=== PATIENT | female | born 1985 | race Caucasian/White ===

== ENCOUNTER 2017-04-01 | Inpatient (IN) | payer OTHER ==
[2017-04-01] MEDS ORDERED: OXYTOCIN/DEXTROSE 5%-WATER 30 UNITS/500 ML BAG IV ONE (00:05)
[2017-04-01] MEDS ORDERED: LIDOCAINE HCL 50 ML VIAL PERI PRN (00:05)
[2017-04-01] MEDS ORDERED: RINGER'S SOLUTION,LACTATED 1,000 ML IV ONE ×2 (00:05→07:28)
[2017-04-01] MEDS: MISOPROSTOL 100 MCG TABLET VG PRN ×2 (00:34→04:48)
[2017-04-01] MEDS ORDERED: TERBUTALINE SULFATE 1 MG/ML VIAL ONE (07:01)
[2017-04-01] MEDS ORDERED: TERBUTALINE SULFATE 1 MG/ML VIAL SC ONE (07:27)
--- NOTE | 2017-04-01 09:51 | PN ---
Progess Note - Interim Narrative: 04/01/17 09:50 Patient received second dose of Cytotec around 450 this morning and had tachsystole requiring one dose of subcutaneous Brethine. tracing is now reassuring and contractions are every 2-3 minutes. Cervix remains unchanged at fingertip/50/-2. We'll continue with induction of labor.
--- NOTE | 2017-04-01 13:35 | PN ---
Progess Note - Interim Narrative: 04/01/17 13:33 Patient rating her contractions 1 out of 10 Vital signs stable. Status post 2 doses of Cytotec-last dose around 04:50 AM FHT: 120 baseline, reassuring Contractions q 2-4 min Cervix: /-2 Impression: Intrauterine at 41 weeks and obstruction of labor Plan: We'll consider Rodriguez bulb cervical ripening if no further change in the next few hours.
[2017-04-01] MEDS ORDERED: NALOXONE HCL 1 MG/1 ML SYRG IV PRN (18:53)
[2017-04-01] MEDS ORDERED: ONDANSETRON HCL/PF 2 MG/ML VIAL IV PRN (18:53)
[2017-04-01] MEDS ORDERED: BUPIVACAINE HCL/PF 30 ML VIAL EP SCH (19:00)
--- NOTE | 2017-04-01 20:08 | OR ---
Anesthesia Procedure Note - Anesthesia Procedure Note Date of Service: 04/01/17 Narrative: Vital Signs - Last Taken Temp 36.4 C L 04/01/17 19:39 Pulse 71 04/01/17 19:39 Resp 18 04/01/17 19:39 BP 119/76 04/01/17 19:39 Pulse Ox 99 04/01/17 19:39 04/01/17 20:07 ANESTHESIA PROCEDURE NOTE Date of Procedure: 04/01/2017. Time of procedure: 1944. Performed by: Jasbir Acosta CRNA Hammer Shop Supervisor: None. Preprocedure diagnosis: Active labor. Post procedure diagnosis: Same. Procedure: Insertion of labor epidural. Indications: The patient is a 31 -year-old female in active labor requesting labor epidural for pain management. Findings: See below. Details of the procedure: The patient was placed in a sitting position. DuraPrep as well as Betadine swabs X3 was applied to the patient's back. Patient was then draped in a sterile fashion. Lidocaine 1% was infiltrated to the skin and subcutaneous tissues at the level of the L3-4 interspace. The epidural space was identified using a 18-gauge Tuohy needle with loss-of- resistance technique. Epidural catheter was inserted to a depth of 11 centimeters at skin. Negative test dose was elicited using 3 mL of 1.5% preservative-free lidocaine plus epinephrine 1 200,000. The epidural catheter was then taped and secured in place. A loading dose of 8 mL of 0.25% preservative-free bupivacaine was administered to the epidural catheter after negative aspiration for blood and CSF. EBL: Minimal. Fluids: N/A. Specimen: N/A. Post procedure condition: The patient tolerated the procedure well. No complications were noted. Thank you for this consultation. Jasbir Acosta CRNA
[2017-04-01] MEDS: BUPIVACAINE HCL/0.9 % NACL/PF 250 ML EP PRN (20:24)
[2017-04-01] MEDS: DEXTROSE 5%-LACTATED RINGERS 1,000 ML IV PRN (20:24)
[2017-04-02] MEDS: DEXTROSE 5%-LACTATED RINGERS 1,000 ML IV PRN ×4 (00:16→11:51)
[2017-04-02] MEDS: BUPIVACAINE HCL/0.9 % NACL/PF 250 ML EP PRN (13:03)
[2017-04-02] MEDS ORDERED: OXYTOCIN/DEXTROSE 5%-WATER 30 UNITS/500 ML BAG IV ONE (16:21)
[2017-04-02] MEDS ORDERED: oxyCODONE HCL/ACETAMINOPHEN 1 TAB TABLET PO PRN (16:21)
[2017-04-02] MEDS ORDERED: BENZOCAINE/MENTHOL 81 SPRAY CAN TP PRN (16:21)
[2017-04-02] MEDS ORDERED: SENNOSIDES 8.6 MG TABLET PO PRN (16:21)
[2017-04-02] MEDS ORDERED: BISACODYL 10 MG SUPP.RECT RC PRN (16:21)
[2017-04-02] MEDS ORDERED: GLYCERIN/WITCH HAZEL LEAF 40 APPL BOX TP PRN (16:21)
[2017-04-02] MEDS ORDERED: HYDROCORTISONE 30 APPL TUBE TP PRN (16:21)
--- NOTE | 2017-04-02 16:31 | OR ---
Operative Report - Dictated Report Narrative: Indication: Maternal exhaustion, prolonged second stage of labor, decelerations Pre Procedure Patient was counseled to the risk, benefits, and alternatives to operative vaginal delivery. All questions were answered. Patient consented to proceed with operative vaginal delivery. heart rate interpretation: Good obcy-lp-cpim variability with accelerations and occasional late decelerations, EFW 3200 g, station +2, Position of head GABE, Anesthesia: epidural Cervix was completely dilated and effaced, maternal- size appropriate for application, bladder was emptied, flexion point identified, cup choice appropriate for application site, maternal tissue excluded from vacuum cup Procedure Total application time of the Kiwi Pro with Palm Pump was 30 seconds, maximum vacuum achieved was 500 mm Hg, number of pulls 1, number of involuntary releases 0, advancement in station with each pull, degree of rotation 0-45 Post Procedure Viable male born at 1544 on 04/09/2021 with Apgars 8 and 9, weighing 3362 g in GABE position. Tight nuchal cord 1. Moderate meconium stained fluid - bottle tester present for delivery. Cord clamping delayed 1 minute. Cord gases not collected, Placenta spontaneously delivered, EBL 400 mL, no injury, no shoulder dystocia Second-degree vaginal laceration (4 cm) repaired with 3-0 Vicryl Rapide. hemorrhage due to uterine atony responded to Cytotec 800 g rectally , uterine massage, and Pitocin 30 mU/m IV. History for MU Definition: * The number of deliveries resulting in a live the patient experienced prior to current hospitalization * The previous delivery of live twins or any live multiple gestation is considered one live event. *If primagravida or nulliparous is documented select zero for the number of previous live births. Live Events: 0
[2017-04-02] MEDS: IBUPROFEN 800 MG TABLET PO PRN (18:57)
[2017-04-02] MEDS: oxyCODONE HCL/ACETAMINOPHEN 1 TAB TABLET PO PRN ×2 (20:15→23:59)
[2017-04-02] MEDS: DOCUSATE SODIUM 100 MG CAPSULE PO SCH (20:38)
[2017-04-03] MEDS: IBUPROFEN 800 MG TABLET PO PRN ×3 (02:32→17:25)
[2017-04-03] MEDS: oxyCODONE HCL/ACETAMINOPHEN 1 TAB TABLET PO PRN ×4 (05:38→21:02)
[2017-04-03] MEDS: DOCUSATE SODIUM 100 MG CAPSULE PO SCH ×2 (08:12→21:03)
--- NOTE | 2017-04-03 09:04 | PN ---
Subjective - Date and Time Seen Date: 04/03/17 Time: 09:04 Objective - Vitals Vitals: Last Vital Signs Temp 36.3 C L 04/03/17 08:00 Pulse 73 04/03/17 08:00 Resp 16 04/03/17 08:00 BP 131/55 04/03/17 08:00 Pulse Ox 100 04/02/17 20:50 Patient denies complaints. Lochia wnl Abdomen - soft, nontender Uterus - firm, at umbilicus - 1 No calf tenderness Impression: day #1 - s/p spontaneous vaginal delivery. Plan: Continue routine care Cauti Physician Documentation - Urinary Catheter Management Urethral (Rodriguez) Date of Insertion: 04/01/17 Time of Insertion: 21:00 Date of Removal: 04/02/17 Time of Removal: 15:30
[2017-04-04] MEDS: oxyCODONE HCL/ACETAMINOPHEN 1 TAB TABLET PO PRN ×2 (03:05→07:34)
[2017-04-04] MEDS: IBUPROFEN 800 MG TABLET PO PRN (07:34)
[2017-04-04] MEDS: DOCUSATE SODIUM 100 MG CAPSULE PO SCH (09:29)
[2017-04-04 09:48] VITALS: BP 85/48
--- NOTE | 2017-04-04 12:27 | PN ---
Subjective - Date and Time Seen Date: 04/04/17 Time: 12:26 Objective - Vitals Vitals: Last Vital Signs Temp 36.6 C 04/04/17 07:30 Pulse 68 04/04/17 07:30 Resp 20 04/04/17 07:30 BP 85/48 04/04/17 07:30 Pulse Ox 99 04/04/17 07:30 Patient denies complaints. Lochia wnl Abdomen - soft, nontender Uterus - firm, at umbilicus - 2 No calf tenderness Impression: day #2 - s/p spontaneous vaginal delivery. Plan: Routine discharge instructions Cauti Physician Documentation - Urinary Catheter Management Urethral (Rodriguez) Date of Insertion: 04/01/17 Time of Insertion: 21:00 Date of Removal: 04/02/17 Time of Removal: 15:30
== END 2017-04-04 17:00 | disposition home or self-care (01) | DRG 774 ==
LOC: OB → MS 04-03 10:51
PROVIDERS: ADMIT Obstetrics & Gynecology; ATTEND Obstetrics & Gynecology
PROC: 10D07Z6 Extraction of Products of Conception, Vacuum, Via Natural or Artificial Opening (ICD-10-PCS; principal; 2017-04-02)
PROC: 0KQM0ZZ Repair Perineum Muscle, Open Approach (ICD-10-PCS; 2017-04-02)
PROC: 3E033VJ Introduction of Other Hormone into Peripheral Vein, Percutaneous Approach (ICD-10-PCS; 2017-04-02)
PROC: 4A1HXCZ Monitoring of Products of Conception, Cardiac Rate, External Approach (ICD-10-PCS; 2017-04-02)
PROC: 00HU33Z Insertion of Infusion Device into Spinal Canal, Percutaneous Approach (ICD-10-PCS; 2017-04-02)
DX: O48.0 Post-term pregnancy (principal); O72.1 Other immediate postpartum hemorrhage; O75.81 Maternal exhaustion complicating labor and delivery; O63.1 Prolonged second stage (of labor); O69.1XX0 Labor and delivery complicated by cord around neck, with compression, not applicable or unspecified; O70.1 Second degree perineal laceration during delivery; O76 Abnormality in fetal heart rate and rhythm complicating labor and delivery; O77.0 Labor and delivery complicated by meconium in amniotic fluid; Z3A.41 41 weeks gestation of pregnancy; Z37.0 Single live birth
CPT/HCPCS: 59025; J2405

== ENCOUNTER 2019-03-18 00:04 | Inpatient (IN) ==
[2019-03-18] MEDS ORDERED: ONDANSETRON 4 MG TAB.RAPDIS PO PRN (00:09)
[2019-03-18] MEDS ORDERED: OXYTOCIN/DEXTROSE 5%-WATER 30 UNITS/500 ML BAG IV ONE ×2 (00:09→21:28)
[2019-03-18] MEDS ORDERED: DEXTROSE 5%-LACTATED RINGERS 1,000 ML IV PRN (00:09)
[2019-03-18] MEDS ORDERED: MISOPROSTOL 100 MCG TABLET VG PRN (00:09)
[2019-03-18] MEDS ORDERED: PENICILLIN G POTASSIUM 5 MILLIONUNT in DEXTROSE 5 % IN WATER 100 ML IV ONE ×2 (00:30)
[2019-03-18 00:35] LABS: Cocaine Ur Negative (NEGATIVE); Urine Barbiturate Negative (NEGATIVE); Urine Benzodiazepines Negative (NEGATIVE); Urine Opiates Negative (NEGATIVE); Urine PCP Negative (NEGATIVE); Urine THC Negative (NEGATIVE)
[2019-03-18] MEDS: RINGER'S SOLUTION,LACTATED 1,000 ML IV ONE ×3 (00:55→17:52)
[2019-03-18] MEDS: PENICILLIN G POTASSIUM 2.5 MILLIONUNT in DEXTROSE 5 % IN WATER 100 ML IV SCH ×8 (04:53→17:09)
--- NOTE | 2019-03-18 06:57 | HP ---
Chief Complaint - Chief Complaint Date of Service: 03/18/19 Time of Service: 06:12 Chief Complaint: Induction of labor for AMA History of Present Illness: 33 yo at 39 3/7 wks admitted for induction of labor for advanced maternal age. This complicated by AMA, anxiety, h/o depression, h/o recurrent SAB, h/o PP hemorrhage, and h/o LEEP. Rh positive Rubella immune GBS positive Medical History (Updated 12/15/18 @ 09:15 by Tanisha Jansen RN) Anemia (Acute) Onset Date: 01/09/17 with pregnancies -2016, 2018 Anxiety (Chronic) Mood swings (Acute) Lactational amenorrhea (Acute) Anxiety Onset Date: Unknown Depression Onset Date: Unknown HPV (human papilloma virus) infection Onset Date: Unknown Abnormal Pap smear of cervix Onset Date: Unknown hemorrhage Onset Date: 04/02/17 due to uterine atony Recurrent loss Onset Date: 12/29/15 Uterine atony Onset Date: 04/02/17 [place] teeth extracted Onset Date: Unknown Surgical History: Surgical History (Updated 02/11/18 @ 17:06 by Xiao Pompa [facility]) H/O LEEP Onset Date: Unknown History of colposcopy Onset Date: Unknown Family History: Family History (Updated 02/23/18 @ 15:13 by Xiao Pompa CMA) Brother Epilepsy Grandfather , maternal Cancer Lung cancer Grandfather , paternal Cancer Lung cancer Grandmother , paternal Unknown cause of morbidity or mortality Mother Hypertension Father COPD (chronic obstructive pulmonary disease) Social History: (Last Reviewed 03/18/19 @ 06:33 by Kaveh Pugh DO) Social History: Marital status: household members: spouse, children current occupational status: employed current occupation: teacher Highest education level completed: Bachelor's degree Service: No Tobacco: Smoking Status: Never smoker Alcohol: alcohol intake: current alcohol intake frequency: holiday/special occasion Substance Use: substance use type: does not use Dietary Habits: caffeine: No Exercise: Physical activity type: bicycling Moderate/strenuous exercise - number of days: 1 frequency: 3-4 times per week Review Of Systems (GEN) - Review of Systems Generalized/Overall Review: Present: No Symptoms Reported EENTM: Present: No Symptoms Reported Respiratory: Present: No Symptoms Reported Cardiac: Present: No Symptoms Reported Abdominal: Present: No Symptoms Reported Genitourinary: Present: No Symptoms Reported Musculoskeletal: Present: No Symptoms Reported Neurological: Present: No Symptoms Reported Skin: Present: No Symptoms Reported Endocrine: Present: No Symptoms Reported Allergies/Adverse Reactions: Allergies Allergy/AdvReac Type Severity Reaction Status Date / Time No Known Allergies Allergy Verified 03/18/19 00:17 Home Medications: HOME MEDICATIONS vitamin,calcium,zdvgiwte-hgdz-evyrv acid tablet 1 tab PO DAILY 02/23/18 [Last Taken 03/17/19 08:00] ferrous sulfate 325 mg (65 mg iron) tablet,delayed release 325 mg PO DAILY #30 tab 12/15/18 [Last Taken 03/17/19 08:00] Exam - Exam Vital Signs: Vital Signs - Last Taken Temp 36.3 C 03/18/19 00:20 Pulse 98 03/18/19 00:20 Resp 16 03/18/19 00:20 BP 121/74 03/18/19 00:20 Pulse Ox 98 03/18/19 00:20 Constitutional: Present: Alert, Oriented x3, Cooperative, No distress ENT Exam: Present: hearing grossly normal Breasts: Present: Exam deferred Respiratory: Present: lungs clear, no respiratory distress Cardiovascular/Chest: Present: regular rate, rhythm, no edema Abdomen: Present: soft, nontender, no rebound tenderness, other - gravid /Rectal: Present: Other - cervix FT/TH/-3 Extremity: Present: no pedal edema, no calf tenderness Skin Exam: Present: normal color, warm/dry, no cyanosis Lymphatic: Present: no adenopathy Neurologic: Present: alert, normal mood/affect, oriented x 3 Appearance: Present: appropriate appearance, appropriate insight Eye contact: Present: cooperative, good eye contact Thoughts: Present: normal thought pattern Diagnostic Studies: Laboratory Results Negative (NEGATIVE) 03/18/19 00:20 Negative (NEGATIVE) 03/18/19 00:20 Ur Phencyclidine Scrn Negative (NEGATIVE) 03/18/19 00:20 Urine Amphetamine Negative (NEGATIVE) 03/18/19 00:20 U Benzodiazepines Scrn Negative (NEGATIVE) 03/18/19 00:20 Negative (NEGATIVE) 03/18/19 00:20 Negative (NEGATIVE) 03/18/19 00:20 Assessment/Plan - Assessment/Plan (1) Advanced maternal age (AMA) in Assessment: Admit for Cytotec induction of labor. Epidural PRN. IV PCN for GBS prophylaxis. Problem: Acute (2) Group B streptococcal carriage complicating Problem: Acute (3) Anxiety and depression Problem: Acute (4) History of loop electrical excision procedure (LEEP) Problem: Acute (5) History of recurrent miscarriages Problem: Acute
[2019-03-18] MEDS ORDERED: ONDANSETRON HCL/PF 2 MG/ML VIAL IV PRN (16:45)
[2019-03-18] MEDS ORDERED: BUPIVACAINE HCL/0.9 % NACL/PF 250 ML EP PRN (16:45)
[2019-03-18] MEDS ORDERED: NALOXONE HCL 1 MG/1 ML SYRG IV PRN (16:45)
[2019-03-18] MEDS ORDERED: BUPIVACAINE HCL/PF 30 ML VIAL EP SCH (16:45)
--- NOTE | 2019-03-18 17:08 | ANES ---
Anesthesia Pre Procedure Eval Vitals/Labs: Last Vital Signs Temp 36.3 C 03/18/19 00:20 Pulse 98 03/18/19 00:20 Resp 16 03/18/19 00:20 BP 121/74 03/18/19 00:20 Pulse Ox 98 03/18/19 00:20 HOME MEDICATIONS vitamin,calcium,lheddheg-oqyr-tpkef acid tablet 1 tab PO DAILY 02/23/18 [Last Taken 03/17/19 08:00] ferrous sulfate 325 mg (65 mg iron) tablet,delayed release 325 mg PO DAILY #30 tab 12/15/18 [Last Taken 03/17/19 08:00] Allergies/Adverse Reactions: Allergies Allergy/AdvReac Type Severity Reaction Status Date / Time No Known Allergies Allergy Verified 03/18/19 00:17 - Planned Procedure Planned Procedure: ELECTIVE INDUCTION 39 WEEKS 3 DAYS Medication List Reviewed:: Yes Allergies Verified: Yes Medical History (Updated 03/18/19 @ 06:57 by Kaveh Pugh DO) Anemia (Acute) Onset Date: 01/09/17 with pregnancies -2018 Anxiety (Chronic) Mood swings (Acute) Lactational amenorrhea (Acute) Anxiety Onset Date: Unknown Depression Onset Date: Unknown HPV (human papilloma virus) infection Onset Date: Unknown Abnormal Pap smear of cervix Onset Date: Unknown hemorrhage Onset Date: 04/02/17 due to uterine atony Recurrent loss Onset Date: 12/29/15 Uterine atony Onset Date: 04/02/17 [place] teeth extracted Onset Date: Unknown Surgical History (Updated 03/18/19 @ 06:57 by Kaveh Pugh DO) H/O LEEP Onset Date: Unknown History of colposcopy Onset Date: Unknown Family History (Updated 02/23/18 @ 15:13 by Xiao Pompa CMA) Brother Epilepsy Grandfather , maternal Cancer Lung cancer Grandfather , paternal Cancer Lung cancer Grandmother , paternal Unknown cause of morbidity or mortality Mother Hypertension Father COPD (chronic obstructive pulmonary disease) - Cardiovascular Tolerate Activity: Good Heart Sounds: S1 & S2, Regular - Anesthesia Assessment and Plan ASA Class: PS, II Anesthesia Type Plan: Epidural
--- NOTE | 2019-03-18 17:32 | ANES ---
Post Anesthesia Assessment - Vital Signs Vitals: Last Vital Signs Temp 36.3 C 03/18/19 00:20 Pulse 98 03/18/19 00:20 Resp 16 03/18/19 00:20 BP 121/74 03/18/19 00:20 Pulse Ox 98 03/18/19 00:20 Airway Patency: Normal - Mental Status Level Of Consciousness: Awake - N/V Assessment Nausea/Vomiting Presence: None Dehydration:: No
--- NOTE | 2019-03-18 17:32 | ANES ---
Anesthesia Procedure Note Procedure Note: ANESTHESIA PROCEDURE NOTE Date of Procedure: 03/18/2019. Time of procedure: 1715. Performed by: Jasbir Acosta CRNA Ramp Lead: None. Preprocedure diagnosis: Active labor. Post procedure diagnosis: Same. Procedure: Insertion of labor epidural. Indications: The patient is a 33-year-old female in active labor requesting labor epidural for pain management. Findings: See below. Details of the procedure: The patient was placed in a sitting position. DuraPrep as well as Betadine swabs X3 was applied to the patient's back. Patient was then draped in a sterile fashion. Lidocaine 1% was infiltrated to the skin and subcutaneous tissues at the level of the L3-4 interspace. The epidural space was identified using a 18-gauge Tuohy needle with [id number] technique. Epidural catheter was inserted to a depth of 10 centimeters at skin. Negative test dose was elicited using 3 mL of 1.5% preservative-free lidocaine plus epinephrine 1 200,000. The epidural catheter was then taped and secured in place. A loading dose of 8 mL of 0.25% preservative-free bupivacaine was administered to the epidural catheter after negative aspiration for blood and CSF. EBL: Minimal. Fluids: N/A. Specimen: N/A. Post procedure condition: The patient tolerated the procedure well. No complications were noted. Thank you for this consultation. Jasbir Acosta CRNA
--- NOTE | 2019-03-18 20:20 | OR ---
Operative Report - Dictated Report Narrative: Indication: Nonreassuring tracing (recurrent late decelerations) Pre Procedure: Patient was counseled to the risk, benefits, and alternatives to operative vaginal delivery. All questions were answered. Patient consented to proceed with operative vaginal delivery. Cervix was completely dilated and effaced, maternal- size appropriate for application, bladder was emptied, flexion point identified, cup choice appropriate for application site, maternal tissue excluded from vacuum cup heart rate interpretation: 150 bpm with recurrent late decelerations and a deceleration down to the 70s for approximately 2-1/2 to 3 minutes, EFW 3500 g, station +2, Position of head ALESSANDRA Anesthesia: Epidural Procedure: Total application time of the Kiwi Pro with Palm Pump was 70 seconds Maximum vacuum achieved was 500 mm Hg Number of pulls 2 Number of involuntary releases 0 Vacuum reduced between contractions Advancement in station with each pull Degree of rotation 0-45 Post Procedure: Viable male born at 1854 on 03/18/2021 with Apgars 7 and 8, weighing 3664 g in ALESSANDRA position with loop of cord lying in front of neck and chest. Placenta spontaneously delivered EBL 100 mL Lacerations 5 cm second-degree vaginal laceration repaired with 3-0 Vicryl Rapide No injury, 90 seconds shoulder dystocia 2nd stage of labor: 54 minutes head/body interval: 90 seconds Diabetes: No Attendants at : [OB: Kaveh Pugh, Ped: Maxine Davenport, Nurses: Valerie Lopez, Corinna Hicks, Jenni Hooper, Tanisha Benitez others: Ori Acosta CRNA, Bala Parker, ST, [facility] Position of head at delivery: ALESSANDRA left shoulder anterior Maneuvers used: Ten yes, Suprapubic pressure yes, Wood's screw yes, Delivery of posterior shoulder yes, Arm sweep yes l, Episiotomy no Description: Both shoulders cleared under the symphysis pubis with Ten and suprapubic pressure and Phelps screw maneuver. An arm sweep was attempted but unsuccessful. Once both shoulders cleared the pubic bone, a combination of counterclockwise rotation with delivery of posterior shoulder resulted in delivery of body. Infant moving all extremities at yes, Injuries noted: None Cord gases obtained venous pH 7.28, base excess -7.5 arterial pH 7.12, base excess -16.2 Mother informed of dystocia and potential sequelae. Recommendations for future pregnancies: Avoid vaginal delivery of infant as large as this one. History for MU History for MU Definition: * The number of deliveries resulting in a live the patient experienced prior to current hospitalization * The previous delivery of live twins or any live multiple gestation is considered one live event. *If primagravida or nulliparous is documented select zero for the number of previous live births. Live Events: Live Events: 1
[2019-03-18] MEDS ORDERED: DOCUSATE SODIUM 100 MG CAPSULE ONE (21:19)
[2019-03-18] MEDS ORDERED: IBUPROFEN 800 MG TABLET ONE (21:19)
[2019-03-18] MEDS ORDERED: oxyCODONE HCL/ACETAMINOPHEN 1 TAB TABLET ONE (21:20)
[2019-03-18] MEDS ORDERED: HYDROCORTISONE 30 APPL TUBE TP PRN (21:28)
[2019-03-18] MEDS ORDERED: BENZOCAINE/MENTHOL 81 SPRAY CAN TP PRN (21:28)
[2019-03-18] MEDS ORDERED: SENNOSIDES 8.6 MG TABLET PO PRN (21:28)
[2019-03-18] MEDS ORDERED: BISACODYL 10 MG SUPP.RECT RC PRN (21:28)
[2019-03-18] MEDS ORDERED: GLYCERIN/WITCH HAZEL LEAF 40 APPL BOX TP PRN (21:28)
[2019-03-18] MEDS ORDERED: IBUPROFEN 800 MG TABLET PO PRN (21:28)
[2019-03-18] MEDS: IBUPROFEN 800 MG TABLET PO PRN (21:45)
[2019-03-18] MEDS: oxyCODONE HCL/ACETAMINOPHEN 1 TAB TABLET PO PRN (21:45)
[2019-03-18] MEDS: DOCUSATE SODIUM 100 MG CAPSULE PO SCH (22:56)
[2019-03-19] MEDS: oxyCODONE HCL/ACETAMINOPHEN 1 TAB TABLET PO PRN ×4 (04:19→20:32)
[2019-03-19] MEDS ORDERED: POLYETHYLENE GLYCOL 3350 119 GM BTL PO SCH (09:00)
[2019-03-19] MEDS: PRENATAL VITS96/IRON FUM/FOLIC 1 TAB TABLET PO SCH (09:22)
[2019-03-19] MEDS: DOCUSATE SODIUM 100 MG CAPSULE PO SCH ×2 (09:22→20:32)
[2019-03-19] MEDS: FERROUS SULFATE 325 MG TABLET PO SCH (09:22)
[2019-03-19] MEDS: POLYETHYLENE GLYCOL 3350 17 GM PACKET PO SCH (09:31)
[2019-03-19] MEDS: IBUPROFEN 800 MG TABLET PO PRN ×2 (12:10→20:32)
--- NOTE | 2019-03-19 13:49 | PN ---
Subjective - Date and Time Seen Date: 03/19/19 Time: 13:48 Objective - Vitals Vitals: Last Vital Signs Temp 36.3 C 03/19/19 12:08 Pulse 73 03/19/19 12:08 Resp 18 03/19/19 12:08 BP 102/59 03/19/19 12:08 Pulse Ox 100 03/19/19 12:08 Patient's pelvic discomfort controlled with oral pain medications and ice pack. Lochia wnl abdomen - soft, nontender Uterus -firm, at umbilicus - 1 no calf tenderness Impression: day #1 - s/p vacuum-assisted vaginal delivery with resolution of shoulder dystocia. Plan: Continue routine care Cauti Physician Documentation - Urinary Catheter Management Urethral (Rodriguez) Date of Insertion: 03/18/19 Time of Insertion: 17:54 Assessment/Plan - Problems/Diagnosis (1) Advanced maternal age (AMA) in Problem: Acute (2) Group B streptococcal carriage complicating Problem: Acute (3) Anxiety and depression Problem: Acute (4) History of loop electrical excision procedure (LEEP) Problem: Acute (5) History of recurrent miscarriages Problem: Acute
[2019-03-20] MEDS: oxyCODONE HCL/ACETAMINOPHEN 1 TAB TABLET PO PRN ×3 (01:34→14:03)
[2019-03-20] MEDS: IBUPROFEN 800 MG TABLET PO PRN (07:18)
[2019-03-20] MEDS: DOCUSATE SODIUM 100 MG CAPSULE PO SCH (08:42)
[2019-03-20] MEDS: PRENATAL VITS96/IRON FUM/FOLIC 1 TAB TABLET PO SCH (08:46)
[2019-03-20] MEDS: FERROUS SULFATE 325 MG TABLET PO SCH (08:46)
[2019-03-20] MEDS: POLYETHYLENE GLYCOL 3350 17 GM PACKET PO SCH (09:03)
[2019-03-20 09:42] VITALS: BP 113/68
--- NOTE | 2019-03-20 12:52 | PN ---
Subjective - Date and Time Seen Date: 03/20/19 Time: 12:45 Objective - Vitals Vitals: Last Vital Signs Temp 37.0 C 03/20/19 09:35 Pulse 80 03/20/19 09:35 Resp 20 03/20/19 09:35 BP 113/68 03/20/19 09:35 Pulse Ox 99 03/20/19 09:35 Patient denies complaints. Lochia wnl abdomen - soft, nontender Uterus -firm, at umbilicus - 2 no calf tenderness Impression: day #2 - s/p vacuum-assisted vaginal delivery. Plan: Routine discharge instructions. Baby has elevated bilirubin so mom will board for baby. Cauti Physician Documentation - Urinary Catheter Management Urethral (Rodriguez) Date of Insertion: 03/18/19 Time of Insertion: 17:54 Assessment/Plan - Problems/Diagnosis (1) Advanced maternal age (AMA) in Problem: Acute (2) Group B streptococcal carriage complicating Problem: Acute (3) Anxiety and depression Problem: Acute (4) History of loop electrical excision procedure (LEEP) Problem: Acute (5) History of recurrent miscarriages Problem: Acute
== END 2019-03-20 16:00 | disposition home or self-care (01) | DRG 807 ==
LOC: OB 00:04
PROVIDERS: ADMIT Obstetrics & Gynecology; ATTEND Obstetrics & Gynecology
CPT/HCPCS: 59025; 80307; 88307